=== PATIENT | male | born 1985 | race Caucasian/White ===

== ENCOUNTER 2016-08-15 19:31 | Observation (INO) | payer OTHER ==
[2016-08-15] MEDS ORDERED: SODIUM CHLORIDE 0.9% 1,000 ML IV ONE (20:05)
[2016-08-15] MEDS ORDERED: RX INFO: IV CONTRAST WAS GIVEN 1 EACH MISC MISCELLANE PRN (20:05)
[2016-08-15] MEDS ORDERED: KETOROLAC 30 MG/ML 1 ML VIAL IVP STA (20:05)
--- NOTE | 2016-08-15 20:19 | ED ---
Abdominal Pain HPI - General Chief Complaint: Abdominal Pain Stated Complaint: RLQ pain Time Seen by Provider: 08/15/16 20:01 Source: patient Mode of arrival: ambulatory Limitations: no limitations - History of Present Illness Initial Comments: This is a 31-year-old male presents emergency room for lower quadrant abdominal pain. He states it started earlier today around 2 PM when he was sitting at his desk and did not go away. He states he went golfing it seemed to make a little bit worse. Nothing he particularly does makes it better or worse. He has some associated nausea but no vomiting. No fevers or chills. No diarrhea. His headache in the emergency department when did not go away. No other medical problems or medical history. - Related Data Home Medications Medication Instructions Recorded Confirmed No Known Home Medications [No 08/15/16 08/15/16 Known Home Medications] Allergies Allergy/AdvReac Type Severity Reaction Status Date / Time amoxicillin Allergy Unknown Verified 08/15/16 19:51 Penicillins Allergy Unknown Verified 08/15/16 20:06 Childhood Review of Systems ROS Statement: Those systems with pertinent positive or pertinent negative responses have been documented in the HPI. ROS Other: All systems not noted in ROS Statement are negative. Past Medical History Past Medical History: No Reported History History of Any Multi-Drug Resistant Organisms: C-DIFF Date of last positivie culture/infection: 2012 MDRO Source:: stool Past Surgical History: Hernia Repair, Orthopedic Surgery Past Psychological History: No Psychological Hx Reported Smoking Status: Never smoker Past Alcohol Use History: Occasional Past Drug Use History: None Reported General Exam - General Exam Comments Initial Comments: Constitutional: Awake alert Appears comfortable Head: Normocephalic atraumatic Eyes: no conjunctival injection No scleral icterus EOMI Neck: No JVD Supple Heart: Regular rate rhythm normal S1-S2 no murmurs Lungs: Clear to auscultation bilaterally No wheezing No rales Abdomen: Soft nondistended mild tenderness to deep palpation in the right lower quadrant, no rebound tenderness, no guarding. Extremities: Non edematous DP pulses intact Radial pulses intact Neuro: A&Ox3 No focal neurologic deficits Psych: Appropriate mood and affect Limitations: no limitations Course Vital Signs 08/15/16 08/15/16 19:48 21:27 Temperature 98.5 F 98.1 F Pulse Rate 78 83 Respiratory 18 18 Rate Blood Pressure 125/64 126/61 O2 Sat by Pulse 98 98 Oximetry Medical Decision Making - Medical Decision Making This 31-year-old male presented for right lower quadrant pain. CT showed appendicitis. Dr. Sena was called who recommended admission and he states he will perform appendectomy in the morning. Started on Levaquin and Flagyl. We'll admit to the hospital nothing by mouth. Patient was updated. - Lab Data Result diagrams: 08/15/16 20:50 08/15/16 20:50 Lab Results 08/15/16 08/15/16 Range/Units 20:50 20:50 WBC 14.3 H (3.8-10.6) k/uL RBC 4.89 (4.30-5.90) m/uL Hgb 15.3 (13.0-17.5) gm/dL Hct 45.3 (39.0-53.0) % MCV 92.7 (80.0-100.0) fL MCH 31.3 (25.0-35.0) pg MCHC 33.8 (31.0-37.0) g/dL RDW 13.3 (11.5-15.5) % Plt Count 265 (150-450) k/uL Neutrophils % 89 % Lymphocytes % 5 % Monocytes % 5 % Eosinophils % 1 % Basophils % 0 % Neutrophils # 12.6 H (1.3-7.7) k/uL Lymphocytes # 0.7 L (1.0-4.8) k/uL Monocytes # 0.7 (0-1.0) k/uL Eosinophils # 0.1 (0-0.7) k/uL Basophils # 0.1 (0-0.2) k/uL Sodium 139 (137-145) mmol/L Potassium 4.3 (3.5-5.1) mmol/L Chloride 102 (98-107) mmol/L Carbon Dioxide 27 (22-30) mmol/L Anion Gap 10 mmol/L BUN 20 (9-20) mg/dL Creatinine 1.07 (0.66-1.25) mg/dL Est GFR (MDRD) Af Amer >60 (>60 ml/min/1.73 sqM) Est GFR (MDRD) Non-Af >60 (>60 ml/min/1.73 sqM) Glucose 107 H (74-99) mg/dL Calcium 9.5 (8.4-10.2) mg/dL Disposition Clinical Impression: Appendicitis Disposition: ADMITTED IP TO THIS HOSP Condition: Stable
[2016-08-15 20:57] LABS: Basophils # (A) 0.1 k/uL (0-0.2); Basophils % (A) 0 %; CH 32.4; CHCM 35.1; Eosinophils # (A) 0.1 k/uL (0-0.7); Eosinophils % (A) 1 %; HCT 45.3 % (39.0-53.0); HGB 15.3 gm/dL (13.0-17.5); Luc # (Auto) 0.09; Luc % (Auto) 1; Lymphocytes # (A) 0.7 k/uL (1.0-4.8); Lymphocytes % (A) 5 %; MCH 31.3 pg (25.0-35.0); MCHC 33.8 g/dL (31.0-37.0); MCV 92.7 fL (80.0-100.0); Mean Platelet Volume 6.2; Monocytes # (A) 0.7 k/uL (0-1.0); Monocytes % (A) 5 %; Neutrophils # (A) 12.6 k/uL (1.3-7.7); Neutrophils % (A) 89 %; RBC 4.89 m/uL (4.30-5.90); RDW 13.3 % (11.5-15.5); WBC 14.3 k/uL (3.8-10.6); WBC (Perox) 14.11
[2016-08-15 21:16] LABS: Anion Gap 10 mmol/L; Blood Urea Nitrogen 20 mg/dL (9-20); Calcium 9.5 mg/dL (8.4-10.2); Carbon Dioxide 27 mmol/L (22-30); Chloride 102 mmol/L (98-107); Glucose 107 mg/dL (74-99); Non-African American GFR(MDRD) >60 (>60 ml/min/1.73 sqM); Potassium 4.3 mmol/L (3.5-5.1); Sodium 139 mmol/L (137-145)
--- NOTE | 2016-08-15 22:00 | CT ---
EXAMINATION TYPE: CT abdomen pelvis w con DATE OF EXAM: 08/15/2016 9:23 PM COMPARISON: 12/08/2012 HISTORY: Right lower quadrant pain. CT DLP: 1428.00 mGycm Automated exposure control for dose reduction was used. TECHNIQUE: Helical acquisition of images was performed from the lung bases through the pelvis. CONTRAST: Performed without Oral Contrast and with IV Contrast, patient injected with 100 mL of Omnipaque 300. FINDINGS: Lung bases are clear of consolidation. There is no pleural effusion. There is no pericardial effusion . Liver spleen pancreas gallbladder appear normal. Bile ducts are not dilated. There is no adrenal mass . Kidneys show satisfactory contrast opacification. There is no hydronephrosis. There is no retroperi toneal adenopathy. There is no ascites. I see no intestinal wall thickening. There are no dilated loo ps. Appendix is somewhat thickened with fluid. Appendix and measures up to 10 mm. There is mild fat s tranding are also seen around the appendix. Bladder distends smoothly. I see no bony destructive proc ess. IMPRESSION: THERE IS MILD ENLARGEMENT OF THE APPENDIX WITH MILD SURROUNDING INFLAMMATORY CHANGES CONSISTENT WITH ACUTE APPENDICITIS. NO ABSCESS SEEN. THIS APPEARS A CHANGE COMPARED TO OLD CT SCAN.
[2016-08-15] MEDS ORDERED: LEVOFLOXACIN 500MG-D5W PMX 500 MG in DEXTROSE/WATER 1 100ML.BAG IVPB STA (22:14)
[2016-08-15] MEDS ORDERED: ONDANSETRON 4 MG/2 ML VIAL IVP PRN (22:14)
[2016-08-15] MEDS ORDERED: NALOXONE 0.4 MG/ML 1 ML VIAL IV PRN (22:14)
[2016-08-15] MEDS ORDERED: metroNIDAZOLE-NS PMX 500 MG in SALINE 1 100ML.BAG IVPB STA (22:14)
[2016-08-15] MEDS: SODIUM CHLORIDE 0.9% 1,000 ML IV SCH (22:42)
[2016-08-16] MEDS: MORPHINE SULFATE 4 MG/ML SYRINGE IV PRN ×3 (00:42→16:39)
[2016-08-16] MEDS: SODIUM CHLORIDE 0.9% 1,000 ML IV SCH ×4 (09:25→23:36)
--- NOTE | 2016-08-16 09:43 | P.GSHP ---
History of Present Illness H&P Date: 08/16/16 Chief Complaint: Abdominal pain Patient is a 31-year-old white male, patient of Dr. Nickerson in the outpatient setting, with medical history significant for right inguinal hernia repair with mesh and C. diff in 2012, presenting to the emergency department with complaints of abdominal pain that started around 2 PM yesterday primarily located around the periumbilical region associated with nausea without vomiting progressing throughout the day with no relieving factors. No history of fevers , chills, shortness of breath, chest pain, diarrhea, constipation. In the emergency department, patient presented with leukocytosis. Patient underwent CT of abdomen and pelvis with oral and IV contrast with evidence of acute appendicitis without abscess. Patient was started on IV antibiotics in the form of Levaquin and Flagyl and admitted to the surgical floor. Patient is currently complaining of right lower quadrant pain rated 3 out of 10 described as constant, aching, exacerbated with movement. Patient remains afebrile. Patient is urinating without difficulty. Denies nausea or vomiting. Past Medical History Past Medical History: No Reported History History of Any Multi-Drug Resistant Organisms: C-DIFF Date of last positivie culture/infection: 2012 MDRO Source:: stool Past Surgical History: Hernia Repair, Orthopedic Surgery Past Anesthesia/Blood Transfusion Reactions: No Reported Reaction Past Psychological History: No Psychological Hx Reported Smoking Status: Never smoker Past Alcohol Use History: Occasional Past Drug Use History: None Reported Medications and Allergies Home Medications Medication Instructions Recorded Confirmed Type No Known Home Medications [No 08/15/16 08/15/16 History Known Home Medications] Allergies Allergy/AdvReac Type Severity Reaction Status Date / Time amoxicillin Allergy Unknown Verified 08/15/16 19:51 Penicillins Allergy Unknown Verified 08/15/16 20:06 Childhood Surgical - Exam Vital Signs Temp Pulse Resp BP Pulse Ox 98.5 F 78 18 125/64 98 08/15/16 19:48 08/15/16 19:48 08/15/16 19:48 08/15/16 19:48 08/15/16 19:48 GENERAL: Pt awake and alert, well-appearing, well-nourished, and in no acute distress. HEAD: Atraumatic, normocephalic. ENT: Moist mucous membranes. NECK: Supple without lymphadenopathy or JVD. LUNGS: Breath sounds clear to auscultation bilaterally. No wheezes, rales, or rhonchi. HEART: Heart S1, S2, no S3 or S4. Regular rate and rhythm. No murmurs, rubs or gallops. ABDOMEN: Soft, right lower quadrant tenderness, nondistended, normoactive bowel sounds. No peritoneal signs. EXTREMITIES: 2+ peripheral pulses. No edema. No calf tenderness. NEUROLOGICAL: Pt oriented x 3. No focal deficits noted. Strength and sensation grossly intact. PSYCH: Normal mood, normal affect. SKIN: Warm, dry, intact. Normal turgor. No rashes or lesions. Results - Labs 08/15/16 20:50 08/15/16 20:50 - Imaging CT scan - pelvis: report reviewed US - abdomen: report reviewed Assessment and Plan Plan: Impression: 1. Acute appendicitis. Plan: Patient will undergo laparoscopic appendectomy today. Patient will be kept nothing by mouth. Continue IV hydration. Continue supportive treatment and pain management. The above impression and plan have been discussed and directed by Dr. Judge. Kleber CABRERA acting as scribe for Dr. Judge.
[2016-08-16] MEDS ORDERED: IV FLUID CONTINUATION 1,000 ML IV ONE (12:55)
[2016-08-16] MEDS ORDERED: HEPARIN SODIUM,PORCINE 5,000 UNIT/ML 1 ML VIAL SQ ONE (13:06)
[2016-08-16] MEDS ORDERED: DEXAMETHASONE SOD PHOS (MDV) 100 MG/10 ML VIAL IV ONE (13:31)
[2016-08-16] MEDS ORDERED: ROCURONIUM BROMIDE 10 MG/ML 10 ML VIAL IV ONE (13:46)
[2016-08-16] MEDS ORDERED: fentaNYL (PF) 50 MCG/ML 2 ML AMP ONE (13:46)
[2016-08-16] MEDS ORDERED: LIDOCAINE 1% INJ 10MG/ML (20 ML MDV) ONE (13:46)
[2016-08-16] MEDS ORDERED: GLYCOPYRROLATE 0.2 MG/ML 2 ML VIAL ONE (13:46)
[2016-08-16] MEDS ORDERED: SUCCINYLCHOLINE CHLORIDE 100 MG/5 ML SYR IV ONE (13:46)
[2016-08-16] MEDS ORDERED: NEOSTIGMINE 1 MG/ML 10 ML VIAL ONE (13:46)
[2016-08-16] MEDS ORDERED: PROPOFOL 10 MG/ML 20 ML VIAL IV ONE (13:46)
[2016-08-16] MEDS ORDERED: MIDAZOLAM 2 MG/2 ML VIAL ONE (13:46)
[2016-08-16] MEDS ORDERED: BUPIVACAIN-EPI 0.25%-1:200,000 30 ML VIAL SQ ONE (14:09)
[2016-08-16] MEDS ORDERED: NALOXONE 0.4 MG/ML 1 ML VIAL IV PRN (14:23)
[2016-08-16] MEDS ORDERED: HYDROmorphone 1 MG/ML 1 ML SYRINGE IVP PRN (14:23)
[2016-08-16] MEDS ORDERED: HYDROcodone/APAP 5-325MG 1 EACH TAB PO PRN (14:23)
[2016-08-16] MEDS ORDERED: ACETAMINOPHEN TAB 325 MG TAB PO PRN (14:23)
[2016-08-16] MEDS ORDERED: LACTATED RINGERS 1,000 ML IV ONE (14:23)
--- NOTE | 2016-08-16 14:23 | P.OP ---
Date of Procedure: 08/16/16 Preoperative Diagnosis: Appendicitis Postoperative Diagnosis: Appendicitis Procedure(s) Performed: laparoscopic appendectomy Anesthesia: CHETAN Surgeon: Raheem Judge Estimated Blood Loss (ml): 5 Pathology: other (Appendix) Condition: stable Disposition: PACU Description of Procedure: HarThe patient's placed on the operating table in the supine position. The patient received general anesthesia. The abdomen was prepped and draped in the usual sterile fashion. The skin was anesthetized 1% local Xylocaine at the trocar sites. Using an 11 blade the skin was incised at the umbilicus. The umbilicus was grasped with a Cleveland clamp and then a Veress needle was placed into the peritoneal cavity. Position of the Veress needle was confirmed with positive drop test. After adequate insufflation a 5 mm trocar was placed into the peritoneal cavity. The abdomen was further insufflated. And then the laparoscope was placed in the peritoneal cavity. Next a 5 mm trocar was placed in the midline suprapubic position. And then a 10 mm trocar was placed in the midline epigastric position. The patient was rotated with the right side up and in Trendelenburg. The appendix was visualized. The appendix appeared to be inflamed. The appendix was grasped and then using the Harmonic scissors the mesoappendix was divided. A PDS Endoloop was then placed around the base of the appendix. And then the appendix was divided using Harmonic scissors. The appendix was placed into an Endo Catch and brought out through the 10 mm trocar site. The abdomen was irrigated. There is no bleeding seen. The trochars withdrawn. The skin was closed interrupted 3-0 Monocryl suture. Dermabond dressing was applied. Patient was sent to recovery room in stable condition.
[2016-08-16] MEDS: KETOROLAC 30 MG/ML 1 ML VIAL IVP SCH ×3 (15:47→23:33)
[2016-08-16] MEDS: DOCUSATE 100 MG CAP PO SCH (19:27)
[2016-08-17] MEDS: KETOROLAC 30 MG/ML 1 ML VIAL IVP SCH (05:36)
[2016-08-17 07:18] VITALS: BP 110/67; PULSE 67; RESP 16; TEMP 97
[2016-08-17] MEDS ORDERED: ENOXAPARIN 40 MG/0.4 ML SYRINGE SQ SCH (09:00)
[2016-08-17] MEDS: DOCUSATE 100 MG CAP PO SCH (09:24)
--- NOTE | 2016-08-17 11:50 | P.DS ---
Providers Date of admission: 08/15/16 22:14 Expected date of discharge: 08/17/16 Attending physician: Raheem Judge Primary care physician: Jose Nickerson Hospital Course: Patient is a 31-year-old white male, patient of Dr. Nickerson in the outpatient setting, with medical history significant for right inguinal hernia repair with mesh and C. diff in 2012, presenting to the emergency department with complaints of abdominal pain. CT of abdomen and pelvis with evidence of acute appendicitis without abscess. Patient was started on IV antibiotics in the form of Levaquin and Flagyl and admitted to the surgical floor. Patient underwent laparoscopic appendectomy by Dr. Judge on 08/16/2016. Patient tolerated procedure well. Patient had an uneventful postoperative course and was deemed stable for discharge to home with close follow-up in the outpatient setting. Discharge diagnoses: 1. Acute appendicitis status post laparoscopic appendectomy. The above impression and plan have been discussed and directed by Dr. Judge. Kleber CABRERA acting as scribe for Dr. Judge. Pertinent Studies: CT of abdomen and pelvis Patient Condition at Discharge: Good Plan - Discharge Summary New Discharge Prescriptions: Docusate [Colace] 100 mg PO BID #20 capsule HYDROcodone/APAP 7.5-325MG [Belle 7.5-325] 1 tab PO Q6HR PRN #28 tab PRN Reason: Pain Discharge Medication List Docusate [Colace] 100 mg PO BID #20 capsule 08/16/16 [Rx] HYDROcodone/APAP 7.5-325MG [Belle 7.5-325] 1 tab PO Q6HR PRN #28 tab 08/16/16 [ Rx] Follow up Appointment(s)/Referral(s): Jose Nickerson MD [Primary Care Provider] - 1-2 days Raheem Judge MD [STAFF PHYSICIAN] - 1 Week Patient Instructions/Handouts: Laparoscopic Appendectomy (DC) Activity/Diet/Wound Care/Special Instructions: No heavy lifting, pushing, or pulling items greater than 10 pounds. Regular diet Shower daily, no soaking in bath tubs, pools, or hot tubs. No driving while taking pain medication. Notify surgeon with any signs or symptoms of infection, increased pain, or not tolerating diet. Discharge Disposition: HOME SELF-CARE
== END 2016-08-17 14:02 | disposition home or self-care (01) ==
LOC: EC 19:31 → 3SUR 22:14
PROVIDERS: ADMIT Surgery; ATTEND Surgery
DX: K35.80 Unspecified acute appendicitis (principal); Z88.0 Allergy status to penicillin
CPT/HCPCS: 44970; 96376 ×2; 96366; 96367; 96361; 96365; 96375; 99285; 36415; 88304; 80048; 85025; 87040; 74177; G0378 ×2; J2250; J2270; J1644; J2710; J2405; J1956; J2001; J1650; J3010; J1885 ×3; Q9967; J1100; J0330; J2704